=== PATIENT | female | born 1960 | race Caucasian/White ===

== ENCOUNTER → 2019-09-20 14:18 | Outpatient (CLI) | payer BC, SELFPAY ==
--- NOTE | ~2019-09-20 | MM_ITS ---
EXAMINATION: MM screening zachary BI w sam HISTORY: Screening mammogram TECHNIQUE: Craniocaudal and mediolateral oblique 3-D tomosynthesis images were obtained and synthetic 2-D images were generated. CAD analysis was submitted and interpreted. COMPARISON: 08/03/2018, 07/08/2017, 06/05/2016 bilateral digital screening mammogram examinations BREAST PARENCHYMAL COMPOSITION: There are scattered areas of fibroglandular density. FINDINGS: There is no evidence of suspicious mass, calcification, or architectural distortion to sugg est malignancy in either breast. There has been no suspicious interval change. IMPRESSION: 1. No mammographic evidence of malignancy. 2. Recommend routine screening mammography in one year. BI-RADS Category 1: Negative Reviewed, dictated and finalized at location A. CHIPPER
== END ==
PROVIDERS: Visit Provider Nurse Practitioner
DX: Z12.31 Encounter for screening mammogram for malignant neoplasm of breast (principal)
CPT/HCPCS: 77063; 77067

== ENCOUNTER → 2019-09-20 14:20 | Outpatient (CLI) | payer BC, SELFPAY ==
--- NOTE | ~2019-09-20 | US_ITS ---
EXAMINATION: US carotid duplex BI DATE: 09/20/2019 15:53 INDICATION: Carotid stenosis. TECHNIQUE: Grayscale, color Doppler, and pulsed Doppler images of the cervical carotid arteries were obtained. The degree of vessel stenosis is placed in one of the following categories: normal, <50%, 5 0-69%, >=70% but less than near-occlusion, near-occlusion, or total occlusion. Note that percent sten osis relative to normal distal artery lumen diameter is indirectly measured from velocity measurement s as described by Abram, et al. Radiology 2003; 229:340-346. COMPARISON: Ultrasound 08/03/2018 FINDINGS: RIGHT: The right common carotid artery (CCA) peak systolic velocity (PSV) is 81 cm/s. The right internal car otid artery (ICA) PSV is 105 cm/s. The right ICA end-diastolic velocity (EDV) is 41 cm/s. The right I CA/CCA PSV ratio is 1.3. Grayscale and color Doppler images yield an estimate of <50% diameter reduct ion from plaque in the ICA. There is antegrade flow in the right vertebral artery. LEFT: The left CCA PSV is 103 cm/s. The left ICA PSV is 103 cm/s. The left ICA EDV is 42 cm/s. The left ICA /CCA PSV ratio is 1.0. Grayscale and color Doppler images yield an estimate of <50% diameter reductio n from plaque in the ICA. There is antegrade flow in the left vertebral artery. IMPRESSION: 1. <50% stenosis in the right internal carotid artery. 2. <50% stenosis in the left internal carotid artery. Reviewed, dictated and finalized at location A. [employer] WORKER
== END ==
PROVIDERS: Visit Provider Family Medicine
DX: Z82.49 Family history of ischemic heart disease and other diseases of the circulatory system (principal); I65.23 Occlusion and stenosis of bilateral carotid arteries
CPT/HCPCS: 93880

== ENCOUNTER → 2020-07-29 08:49 | Outpatient (CLI) | payer BC, SELFPAY ==
--- NOTE | ~2020-07-29 | CT_ITS ---
EXAMINATION: CT abdomen pelvis w con DATE: 07/29/2020 10:21 INDICATION: Right upper quadrant abdominal mass. TECHNIQUE: Computed tomography (CT) of the abdomen and pelvis was performed with 100 mL Omnipaque 350 intravenous contrast. Automated exposure control and iterative reconstruction technique were employe d. The dose-length product was 605.77 mGy-cm. COMPARISON: None. FINDINGS: The visualized portions of the lung bases demonstrate mild atelectasis. No pleural effusion . The heart size is normal. No pericardial effusion. The liver and spleen are normal. There are armenta es of cholecystectomy. There is a 9 mm hyperenhancing mass in the body of pancreas. The right adrenal gland is normal. There is a 1.5 cm mass in left adrenal gland measuring soft tissue attenuation. The kidneys are normal. There is diverticulosis of the colon without evidence of diverticulitis. The reta endix measures 9 mm in diameter. There are no pathologically enlarged lymph nodes. There is a small v olume of ascites. There is mild lumbar spondylosis. There is a skin marker at the right lateral aspec t of the abdomen. There is no abnormal mass in this area. IMPRESSION: 1. No abnormal mass in the patient's area of concern. 2. Appendiceal diameter of 9 mm, but no periappendiceal inflammation to suggest acute appendicitis. 3. 9 mm hyperenhancing mass in the body of the pancreas, most likely a neuroendocrine tumor. 4. 1.5 cm left adrenal mass. In the absence of known malignancy, this finding is likely an adenoma. Reviewed, dictated and finalized at location A. SE MAN IMPRESSION: 1. No abnormal mass in the patient's area of concern. 2. Appendiceal diameter of 9 mm, but no periappendiceal inflammation to suggest acute appendicitis. 3. 9 mm hyperenhancing mass in the body of the pancreas, most likely a neuroend ocrine tumor. 4. 1.5 cm left adrenal mass. In the absence of known malignancy, this finding i s likely an adenoma.
== END ==
DX: R19.01 Right upper quadrant abdominal swelling, mass and lump (principal); D35.02 Benign neoplasm of left adrenal gland
CPT/HCPCS: 74177; Q9967

== ENCOUNTER → 2020-09-24 13:53 | Outpatient (CLI) | payer BC, SELFPAY ==
--- NOTE | ~2020-09-24 | MR_ITS ---
EXAMINATION: MR abdomen wo/w con DATE: 09/24/2020 15:17 INDICATION: Pancreatic mass TECHNIQUE: Magnetic resonance imaging (MRI) of the abdomen was performed without and with 13 mL Multi rafa intravenous contrast. Sequences included coronal T2-weighted SS-FSE, coronal and axial FS 2D-F IESTA, axial STIR FSE, axial T2-weighted SS-FSE, axial T2-weighted FS SS-FSE, axial diffusion-weighte d SE, axial dual-echo T1-weighted FSPGR, and axial and coronal T1-weighted LAVA. Postcontrast axial T 1-weighted LAVA images were obtained in a time course. Postcontrast coronal T1-weighted LAVA images w ere obtained. COMPARISON: CT abdomen and pelvis dated 07/29/2020 FINDINGS: Mild atelectasis at the lingula and right middle lobe. Heart size is normal. No pericardial or pleura l effusion. Susceptibility artifact associate with cholecystectomy clips at the gallbladder fossa. Li poly, spleen, bilateral adrenal glands and kidneys are normal. There is an approximately 8 mm focus of very subtle increased enhancement in the body of the pancreas which is significantly more conspicuou s on the prior CT . The lesion is essentially indiscernible on the remaining sequences. Approximately 1.2 cm left adrenal nodule which is poorly visualized due to respiratory motion near the diaphragm p recluding a definitive assessment for either signal dropout on opposed phase images or delayed washou t. No dilated bowel to suggest obstruction. On the coronal images there is a small amount of ascites in the pelvis. This surrounds a 5.2 x 5.2 x 7.5 cm enhancing right adnexal mass which abuts the cephalad margin of the anteverted uterus. There i s a 3.2 x 2.6 x 3.5 cm simple appearing cystic lesion arising from the left side of the mass. It is n ot definitively clear whether the mass arises from the right ovary or from the uterus although based on the T2-weighted coronal images there does appear to be a thin T2 hyperintense plane between the ma ss and the uterus and would favor the former. Visualized bones are unremarkable with normal marrow si gnal throughout. IMPRESSION: 1. Very subtle 8 mm focus of increased enhancement in the body of the pancreas which is significantly more conspicuous on the prior CT. Differential would include neoplasm with the increased enhancement favoring neuroendocrine tumor. The lesion lies along the lesser curvature of the body of the stomach and could consider endoscopic ultrasound for further evaluation and potentially biopsy. 2. Indeterminate 7.5 x 5.2 x 5.2 cm right adnexal mass of indeterminate origin with differential incl uding an ovarian neoplasm either benign or malignant or potentially a pedunculated uterine fibroid. B ased upon the coronal T2-weighted imaging would favor ovarian over uterine origin. Recommend BLACKSMITH HELPER c onsultation. 3. 1.2 cm left adrenal nodule statistically most likely to represent an adenoma but which remains ind eterminate with assessment for MRI features of adenoma limited by the small size of the lesion and re spiratory motion. Reviewed, dictated and finalized at location A. RT CLERK IMPRESSION: 1. Very subtle 8 mm focus of increased enhancement in the body of the pancreas which is significantly more conspicuous on the prior CT. Differential would inc lude neoplasm with the increased enhancement favoring neuroendocrine tumor. The lesion lies along the lesser curvature of the body of the stomach and could co nsider endoscopic ultrasound for further evaluation and potentially biopsy. 2. Indeterminate 7.5 x 5.2 x 5.2 cm right adnexal mass of indeterminate origin with differential including an ovarian neoplasm either benign or malignant or p otentially a pedunculated uterine fibroid. Based upon the coronal T2-weighted i maging would favor ovarian over uterine origin. Recommen
[2020-09-24 14:45] LABS: Estimated Glomerular Filt Rate > 60
== END ==
PROVIDERS: PCP Nurse Practitioner; Visit Provider Internal Medicine
DX: K86.89 Other specified diseases of pancreas (principal); D35.02 Benign neoplasm of left adrenal gland
CPT/HCPCS: 74183; A9577

== ENCOUNTER → 2020-09-24 13:54 | Outpatient (CLI) | payer BC, SELFPAY ==
--- NOTE | ~2020-09-24 | US_ITS ---
EXAMINATION: US pelvic complete w TV DATE: 09/24/2020 14:38 INDICATION: Pelvic mass TECHNIQUE: Multiple transabdominal and endovaginal sonographic images of the pelvis were obtained. COMPARISON: None. FINDINGS: The uterus measures 4.8 x 2.2 x 3.4 cm. The endometrial complex measures 5 mm in thickness. There is a solid 6.9 x 4.9 x 5.7 cm right adnexal mass with small amount of internal vascular flow on color D oppler. There is a 4.5 x 3.7 x 3.3 cm anechoic cyst which appears to arise from the medial side of th e mass. A separate right ovary is not visualized. The left ovary measures 1.8 x 1.9 x 0.9 cm. Vascula r flow is identified within the left ovary on color Doppler. There is small amount of free fluid in t he pelvis. IMPRESSION: 1. 6.9 x 4.9 x 5.7 cm right adnexal mass with eccentric 4.5 x 3.7 x 3.3 cm cystic component at the pe riphery of the mass. Differential would include a right ovarian neoplasm which would be a surgical le jesika and could be either benign or malignant. Differential would also include pedunculated uterine fi broid. 2. Small amount of ascites in the pelvis. Reviewed, dictated and finalized at location A. ING SPECIALIST IMPRESSION: 1. 6.9 x 4.9 x 5.7 cm right adnexal mass with eccentric 4.5 x 3.7 x 3.3 cm cyst ic component at the periphery of the mass. Differential would include a right o varian neoplasm which would be a surgical lesion and could be either benign or malignant. Differential would also include pedunculated uterine fibroid. 2. Small amount of ascites in the pelvis.
== END ==
PROVIDERS: PCP Nurse Practitioner; Visit Provider Obstetrics & Gynecology Gynecology
DX: R18.8 Other ascites (principal)
CPT/HCPCS: 76830; 76856

== ENCOUNTER → 2020-10-09 06:57 | Outpatient (CLI) | payer BC, SELFPAY ==
[2020-10-09 23:26] LABS: SARS-CoV-2 RNA PCR Negative
== END ==
PROVIDERS: PCP Nurse Practitioner
DX: Z01.812 Encounter for preprocedural laboratory examination (principal); Z20.822 Contact with and (suspected) exposure to COVID-19
CPT/HCPCS: C9803; U0003; U0005

== ENCOUNTER → 2020-11-08 06:46 | Outpatient (CLI) | payer BC, SELFPAY ==
[2020-11-08 22:40] LABS: SARS-CoV-2 RNA PCR Negative
== END ==
PROVIDERS: PCP Nurse Practitioner
DX: Z01.812 Encounter for preprocedural laboratory examination (principal); Z20.822 Contact with and (suspected) exposure to COVID-19
CPT/HCPCS: C9803; U0003; U0005

== ENCOUNTER → 2020-12-26 06:33 | Outpatient (CLI) | payer BC, SELFPAY ==
[2020-12-26 19:23] LABS: SARS-CoV-2 RNA PCR Negative
== END ==
PROVIDERS: PCP Nurse Practitioner
DX: N83.8 Other noninflammatory disorders of ovary, fallopian tube and broad ligament (principal); Z20.822 Contact with and (suspected) exposure to COVID-19
CPT/HCPCS: C9803; U0003; U0005

== ENCOUNTER → 2021-03-16 14:52 | Outpatient (CLI) | payer BC, SELFPAY ==
--- NOTE | ~2021-03-16 | CT_ITS ---
EXAMINATION: CT abdomen pelvis w con DATE: 03/16/2021 15:19 INDICATION: Neuroendocrine pancreas tumor TECHNIQUE: Computed tomography (CT) of the abdomen and pelvis was performed with 100 cc Omnipaque 350 intravenous contrast. Automated exposure control and iterative reconstruction technique were employe d. Exam dose: 413.81 mGy-cm total exam DLP. COMPARISON: 09/24/2020 MRI abdomen and pelvic ultrasound 07/29/2020 CT abdomen pelvis FINDINGS: Previously reported 8 mm hyperenhancing lesion of the body of the pancreas noted on 020 CT abdomen pelvis examination is less evident on the current examination. The liver, spleen, pancreas, right adrenal gland and kidneys are otherwise unremarkable. Stable proba ble small left adrenal adenoma. Normal caliber of the abdominal aorta. No intraperitoneal or retroperitoneal or pelvic mass lesion or adenopathy or ascites. The urinary bladder and uterus are unremarkable. History of bilateral oophore ctomy. Normal appendix. There is some fluid containing nondilated small bowel segments as well as some fluid levels within the colon which may represent enterocolitis. No bowel obstruction is evident. The appe ndix is unremarkable. No bowel wall thickening, pneumatosis or intraperitoneal free air. Very small fat-containing umbilical hernia. Included skeletal structures are unremarkable. IMPRESSION: Previously reported 8 mm hypoenhancing lesion of the body of the pancreas on 07/29/2020 CT abdomen pelvis is less evident on the current examination Status post cholecystectomy Status post bilateral oophorectomy Fluid levels in the nondilated small bowel and colon, possibly due to enterocolitis Stable left adrenal probable adenoma Reviewed, dictated and finalized at Location A. Reviewed, dictated and finalized at location A. IMPRESSION: Previously reported 8 mm hypoenhancing lesion of the body of the p ancreas on 07/29/2020 CT abdomen pelvis is less evident on the current examinat ion Status post cholecystectomy Status post bilateral oophorectomy Fluid levels in the nondilated small bowel and colon, possibly due to enterocol itis Stable left adrenal probable adenoma
== END ==
PROVIDERS: PCP Nurse Practitioner; Visit Provider Internal Medicine
DX: D3A.8 Other benign neuroendocrine tumors (principal); Z90.49 Acquired absence of other specified parts of digestive tract
CPT/HCPCS: 74177; Q9967

== ENCOUNTER → 2022-04-08 09:23 | Outpatient (CLI) | payer BC, SELFPAY ==
--- NOTE | ~2022-04-08 | CT_ITS ---
EXAMINATION: CT abdomen pelvis wo/w con DATE: 04/08/2022 10:10 INDICATION: Right upper quadrant abdominal pain. Malignant neoplasm of pancreas. Benign neoplasm of u nspecified adrenal gland. TECHNIQUE: Computed tomography (CT) of the abdomen and pelvis was performed without and subsequently with 100 CC Omnipaque 350 intravenous contrast. Automated exposure control and iterative reconstructi on technique were employed. Exam dose: 847.64 mGy-cm total exam DLP. COMPARISON: 03/16/2021 CT abdomen pelvis 07/29/2020 CT abdomen pelvis FINDINGS: The lung bases are clear of infiltrate or consolidation. Normal heart size. No pericardial or pleural effusion. Status post cholecystectomy. No hepatic, splenic or pancreatic space-occupying mass lesion is evident. Normal right adrenal gland. Approximately 12 x 16 mm left adrenal mass with attenuation 9 Hounsfield units on noncontrast examina tion, 44 Hounsfield units during the arterial phase and 93 Hounsfield units in the portal venous phas e.. No renal mass lesion or urinary tract calculus or hydroureteronephrosis. There is atherosclerotic calcification but normal caliber of the abdominal aorta. No intraperitoneal or retroperitoneal or pelvic mass lesion or adenopathy or ascites. The urinary bladder, uterus and adnexal areas are unremarkable. Mild colonic diverticulosis; no CT evidence of diverticulitis. No bowel obstruction or intraperitonea l free air. Some fluid levels are noted in the right colon No urinary tract calculus or hydroureteronephrosis. Normal caliber of the abdominal aorta. No intraperitoneal or retroperitoneal or pelvic mass lesion or adenopathy or ascites. Stable sclerotic lesion at the posterior right acetabulum since 07/29/2020, likely benign bone island IMPRESSION: Stable approximately 12 x 16 mm left adrenal mass since 07/29/2020 Status post cholecystectomy Mild colonic diverticulosis; no evidence of diverticulitis Reviewed, dictated and finalized at Location A. Reviewed, dictated and finalized at location B.
--- NOTE | ~2022-04-08 | US_ITS ---
EXAMINATION: US carotid duplex BI DATE: 04/08/2022 10:44 INDICATION: Carotid atherosclerosis and stenosis. Hyperlipidemia. TECHNIQUE: Grayscale, color Doppler, and pulsed Doppler images of the cervical carotid arteries were obtained. The degree of vessel stenosis is placed in one of the following categories: normal, <50%, 5 0-69%, >=70% but less than near-occlusion, near-occlusion, or total occlusion. Note that percent sten osis relative to normal distal artery lumen diameter is indirectly measured from velocity measurement s as described by Abram, et al. Radiology 2003; 229:340-346. COMPARISON: 09/20/2019 FINDINGS: RIGHT: The right common carotid artery (CCA) peak systolic velocity (PSV) is 77 cm/s. The right internal car otid artery (ICA) PSV is 81 cm/s. The right ICA end-diastolic velocity (EDV) is 36 cm/s. The right IC A/CCA PSV ratio is 1.4. Grayscale and color Doppler images yield an estimate of <50% diameter reducti on from plaque in the ICA. The external carotid artery (ECA) PSV is 64 cm/s. There is antegrade flow in the right vertebral artery. LEFT: The left CCA PSV is 73 cm/s. The left ICA PSV is 77 cm/s. The left ICA EDV is 35 cm/s. The left ICA/C CA PSV ratio is 1.5. Grayscale and color Doppler images yield an estimate of <50% diameter reduction from plaque in the ICA. The ECA PSV is 74 cm/s. There is antegrade flow in the left vertebral artery. IMPRESSION: 1. <50% stenosis in the right internal carotid artery. 2. <50% stenosis in the left internal carotid artery. Reviewed, dictated and finalized at location A.
--- NOTE | ~2022-04-08 | US_ITS ---
EXAMINATION: US thyroid DATE: 04/08/2022 10:48 INDICATION: Nontoxic goiter TECHNIQUE: Multiple ultrasound images of the thyroid were obtained. COMPARISON: CT dated 05/17/2019 FINDINGS: The right thyroid lobe measures 4.7 x 1.5 x 1.1 cm. The left thyroid lobe measures 3.7 x 1.6 x 1.2 c m. Heterogeneous echogenicity with coarsened echotexture throughout the thyroid. 5 x 4 x 2 mm hypoech oic region which is wider than tall with smooth margins and without internal echogenic foci at the ce phalad midline of the isthmus, potentially a small thyroid nodule although based upon appearance of p rior CT would favor a small region of fat situated between the thyroid isthmus and the overlying stra p muscles. No other nodules identified. IMPRESSION: 1.Heterogeneous echogenicity and coarsened echotexture throughout the thyroid which could represent s equela of chronic thyroiditis. 2. 5 mm hypoechoic region at the thyroid isthmus most likely related to the parapharyngeal fat althou gh could not exclude a TI RADS 4 nodule which would remain below size criteria for either biopsy or f ollow-up. Recommend clinical followup with repeat imaging if there are changes on physical exam. Reviewed, dictated and finalized at location A. IMPRESSION: 1.Heterogeneous echogenicity and coarsened echotexture throughout the thyroid w hich could represent sequela of chronic thyroiditis. 2. 5 mm hypoechoic region at the thyroid isthmus most likely related to the par apharyngeal fat although could not exclude a TI RADS 4 nodule which would remai n below size criteria for either biopsy or follow-up. Recommend clinical follow up with repeat imaging if there are changes on physical exam.
== END ==
PROVIDERS: PCP Nurse Practitioner; Visit Provider Nurse Practitioner
DX: E04.9 Nontoxic goiter, unspecified (principal); E78.5 Hyperlipidemia, unspecified; E03.9 Hypothyroidism, unspecified; K86.9 Disease of pancreas, unspecified; C75.9 Malignant neoplasm of endocrine gland, unspecified; I10 Essential (primary) hypertension; D35.00 Benign neoplasm of unspecified adrenal gland; I65.23 Occlusion and stenosis of bilateral carotid arteries; Z90.49 Acquired absence of other specified parts of digestive tract; K57.30 Diverticulosis of large intestine without perforation or abscess without bleeding
CPT/HCPCS: 74178; 76536; 93880; Q9967